=== PATIENT | male | born 1970 | race Caucasian/White ===

== ENCOUNTER 2019-02-05 12:06 | Day surgery (SDC) | payer BC ==
[~2019-02-05] VITALS: Ht 185.4 cm; Wt 105.1 kg
[~2019-02-05 12:06] MED LIST: HYDMOR4 PO; Percocet 5-3251 EACH PO
== END 2019-02-05 16:32 | disposition home or self-care (01) ==
LOC: ORSCSDS 12:06
PROVIDERS: Orthopaedic Surgery
PROC: 0SBC4ZZ Excision of Right Knee Joint, Percutaneous Endoscopic Approach (ICD-10-PCS; principal; 2019-02-05 13:30)
DX: M23.303 Other meniscus derangements, unspecified medial meniscus, right knee (principal)
CPT/HCPCS: A9270-GY; J0690; J1100; J1885; J2250; J2405; J2704; J3010; J7120